=== PATIENT | female | born 1970 | race Caucasian/White ===

== ENCOUNTER 2018-07-24 15:21 | Emergency (ER) | payer OTHER ==
--- NOTE | 2018-07-24 16:39 | EDPHY ---
H & P Smoking Status: Never smoked Time Seen by Provider: 07/24/18 15:35 HPI/ROS: CLINICAL IMPRESSION: Right Low Back Pain, Right hip pain ASSESSMENT/PLAN: Sophie Borrero is a 47-year-old female with a significant medical history of depression and GERD who presents with a complaint of right low back pain and right hip pain after lifting and moving a heavy object 1.5 weeks ago. Patient is afebrile and not toxic appearing, she is in no acute distress on arrival. HSNE intact with no significant red flags. Hip x-ray revealed degenerative changes right facets of L4 and L5, hip x-ray is unremarkable. History and physical examination today is consistent with right lower back and right hip pain; patient had a negative straight leg raise however query mild radicular pathology. She had no saddle paresthesias, lower extremity numbness, tingling, major motor weakness, urinary retention or bowel/bladder incontinence. No indication for emergent MRI. There were no clinical findings to suggest septic joint, vertebral osteomyelitis, hip dislocation, acute fracture, cauda equina syndrome, epidural abscess/hematoma, epidural compression syndrome, herpes zoster, neurovascular compromise, compartment syndrome, DVT, cellulitis or additional emergent intraabdominal infectious/ obstructive process. Patient was given Toradol and a lidoderm patch was placed while in the ED with improvement of her pain. She was prescribed a small amount of Mccrory for severe pain, a steroid Dosepak and will otherwise continue Tylenol and/or ibuprofen as needed. She is well established with her PCP she will call to schedule a follow-up appointment. Strict return precautions discussed- she will return for increased or unmanageable pain, new injury, new midline back pain, numbness, tingling, weakness of legs, loss of bowel or bladder control, saddle paresthesia, urinary retention, loss of bowel or bladder control, difficulty walking or for any other new, worsening or worrisome symptoms. Patient verbalizes understanding and she is in agreement with plan. Case discussed with and patient seen by Dr. Simmons. DIFFERENTIAL DX: Osteoarthritis, gout, septic joint, radicular pain ED COURSE: 4:25 p.m.: Case discussed with Dr. Simmons. CHIEF COMPLAINT: Right hip pain HPI: [ Patient is a 47-year-old female with a significant history of depression who presents to the emergency department with right hip pain that started approximately week and half ago. Patient reports about a week and a half ago she was doing a lot of manual labor [place], a lot of bending and twisting. The next morning she woke up with a significant amount of pain in her low back and right hip. Since that time her low back pain has improved her she is still experiencing significant pain in the right lateral hip. Patient was seen and evaluated by her primary care provider at [facility] and was prescribed Flexeril, she feels that she gets her best relief with Tylenol. Patient denies any recent direct trauma or injury, she denies any midline back pain, saddle paresthesias, lower extremity numbness, tingling, major motor weakness, urinary retention or bowel/bladder incontinence. The pain does not radiate. The pain worsens with any sort of movement and with ambulation. She has been able to walk however with a limp. Patient's last dose of Tylenol was this morning, she took ibuprofen yesterday. She denies any chest pain, shortness of breath or abdominal pain. She denies any urinary symptoms to include dysuria, hematuria or increased frequency. Bowel movements have been normal and regular, no melena or hematochezia. PAST MEDICAL HISTORY: Depression, GERD Pertinent Past Surgical History: Noncontributory Family History: Noncontributory Social History: Denies alcohol, illicit drug use and cigarette smoking. ROS: A full 10 point review of systems was negative except for those mentioned in HPI. PHYSICAL EXAM: General Appearance: Alert, oriented, appropriate, cooperative, NAD, well hydrated, non-toxic appearing, VSS, no hypoxia. HEENT: TMs are clear bilaterally no perforation or FB, no injection, no evidence of serous or mucopurulent otitis. Oropharynx clear is no erythema or exudates, no tonsillar hypertrophy or asymmetry. Dentition without abnormality. Eyes: PERRLA, no acute vision change, nystagmus, swelling, discharge, pain or photosensitivity. Conjunctiva pink, no pallor or injection Neck: Supple, nontender, no lymphadenopathy, no midline pain, FROM, no meningismus. Respiratory: There are no retractions, lungs are clear to auscultation. Cardiac: Regular rate and rhythm, no murmurs or gallops. Gastrointestinal: Abdomen is soft, nontender, bowel sounds normal, no masses/ hernia, no rigidity, guarding or focal peritoneal findings. Back: No step-off, palpable bony abnormality, edema, erythema or ecchymosis of the cervical, thoracic or lumbar spines. TTP: Inferior to the right SI joint and right lateral hip. Limited ROM of lumbar spine due to pain. 5/5 and equal strength of the UEs and LEs bilaterally including shoulder shrug. Pulses: 2+ and equal radial, DP and PT pulses bilaterally. Sensation intact and symmetric to light touch from face, UEs and LEs bilaterally. Straight leg raise negative bilaterally. Pelvis is stable, I am unable to elicit any tenderness to palpation of the right hip. Back Pain Pathway Lumbar pain L1: inner thigh sensation: No deficit L2: ADduct thigh (cross legs): no deficit L3: Extend knee: No deficit L4: Ankle dorsiflexion: No deficit L5: Great toe extension: No deficit S1: Flex knee: No deficit S3-4: bladder/bowel function: No deficit HSNE: No deficit Red flags: MINOR (1 pt each) Alcohol abuse: No DM: No Renal failure: No Night pain: Yes 3rd visit in <= 20 days: No MAJOR (3 pts each) IVDA : No Fever without focus : No Recent/current systemic infection: No Immunosuppression (physician discretion): No Recent spinal fracture/spinal procedure (ESR is not a good screen for spinal epidural hematoma): No New bladder/bowel incontinence or retention: No Total Red Flag score- 1, night pain only Total Red Flag score: <= 3 AND neuro exam is at baseline ---> no MRI is recommended Skin: Warm, dry, no rashes, no nodules on palpation. MEDICAL DECISION MAKING: Patient was seen with Dr. Simmons. Diagnosis: Right hip pain. New, requires workup Summary: See Assessment and Plan for summary of ED visit Clinical lab tests: NA. Independent visualization of images, tracing, or specimens: Yes. Decision to obtain medical records or history from someone other than the patient: No Review / Summarize previous medical records: No Discussed patient with another provider: Yes, Dr. Simmons Patient Progress: Stable, discharged home. (Yarely Guerrero) Constitutional: Initial Vital Signs Temperature (C) 36.7 C 07/24/18 15:34 Heart Rate 76 07/24/18 15:34 Respiratory Rate 16 07/24/18 15:34 Blood Pressure 132/90 H 07/24/18 15:34 O2 Sat (%) 97 07/24/18 15:34 O2 Delivery Mode Room Air Allergies/Adverse Reactions: tetracycline [Tetracycline] Allergy (Severe, Verified 05/30/13 20:11) prochlorperazine edisylate [From Compazine] Allergy (Verified 05/30/13 20:11) prochlorperazine maleate [From Compazine] Allergy (Verified 05/30/13 20:11) pain meds Allergy (Uncoded 05/30/13 20:11) Home Medications: Medication Instructions Recorded Flexeril 10 MG (*) 07/24/18 Hydrocodone/Acetaminophen [Mccrory 1 each PO Q4 PRN #5 tablet 07/24/18 5-325 Tablet] Wellbutrin 100mg (*) 07/24/18 methylPREDNISolone [Medrol Dose 1 each PO AD #1 ea 07/24/18 Conner] MDM/Departure - MDM Medications Given: Discontinued Medications Ketorolac Tromethamine (Toradol) 30 mg IM EDNOW ONE Stop: 07/24/18 16:51 Last Admin: 07/24/18 16:57 Dose: 30 mg Miscellaneous Medication (Icy Hot Lidocaine/Menthol 4%/1% Patch) 1 patch TD EDNOW ONE Stop: 07/24/18 16:51 Last Admin: 07/24/18 16:56 Dose: 1 patch ED Course/Re-evaluation: This pt was seen and examined by me. Left hip tenderness, with mild pain with ROM. Xrays reviewed. 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 I agree with the assessment and plan. (Emely Simmons) - Depart Disposition: Home, Routine, Self-Care Clinical Impression: Right hip pain Condition: Good Instructions: Hip Pain (ED) Additional Instructions: DISCHARGE INSTRUCTIONS FROM YOUR DOCTOR Thank you for visiting our emergency department today. Please keep in mind that discharge from the emergency department does not mean that there is nothing wrong - it simply means that we have not identified an emergency condition that requires further evaluation or treatment in the hospital. You should always plan to follow up with primary care for re-evaluation of your condition in the next 2-3 days. If you have been referred to a specialist, please call as soon as possible (today or tomorrow) to schedule your follow up appointment at the appropriate time. Ice or heat to hip area whichever helps with pain. Avoid heavy lifting, pushing, pulling, carrying. Periodically perform very gentle stretching and range of motion exercises. Ibuprofen 600 mg every 6-8 hours with food. Stop for stomach upset. Do not exceed 2400 mg in 24 hours. Avoid these medications for the next 8 hours as you received Toradol today in the ED. Continue her Flexeril as prescribed as needed for muscle tightness and/or spasm. Mccrory as prescribed as needed for severe pain. Caution - this may cause dizziness and/or drowsiness. Do not combine with alcohol or tylenol. Do not take if you will be driving or operating heavy machinery. Caution- this can be addictive. Caution - this can cause constipation. Schedule a follow-up appointment with your primary care physician in the next 2- 3 days for re-evaluation. You may require further treatment, physical therapy and/or further future testing. Return for increased or unmanageable pain, new injury, new midline back pain, numbness, tingling, weakness of your legs, loss of bowel or bladder control, inability to urinate, burning or pain with urination, blood in the urine, fever , chills, abdominal pain, vomiting, difficulty walking, dizziness, fainting, chest pain, shortness of breath, neck pain, neck stiffness, other site of back pain, calf pain, leg redness or swelling, or for any other new, worsening or worrisome symptoms. People present with illnesses and injuries in different ways, and it is always possible that we have missed something. You may always return for re-evaluation if symptoms worsen or if they are not improving or if you develop new/different symptoms. Again, thank you for choosing our emergency department. We hope that you feel better. Prescriptions: Hydrocodone/Acetaminophen [Mccrory 5-325 Tablet] 1 each PO Q4 PRN #5 tablet PRN Reason: Pain, Severe methylPREDNISolone [Medrol Dose Conner] 1 each PO AD #1 ea Referrals: CASSY JUÁREZ [Primary Care Provider] - As per Instructions
[2018-07-24] MEDS ORDERED: KETOROLAC 30 MG/1 ML SDV IM ONE (16:50)
[2018-07-24] MEDS ORDERED: LIDOCAINE 4%/MENTHOL 1% PATCH TD ONE (16:50)
[2018-07-24 17:18] VITALS: BP 133/74
[2018-07-24] MEDS ORDERED: PATCH REMOVAL 1 EA PATCH TD SCH (21:00)
== END 2018-07-24 17:17 | disposition home or self-care (01) ==
DX: M25.551 Pain in right hip (principal); M54.5 Low back pain
CPT/HCPCS: J1885